=== PATIENT | female | born 1980 | race Caucasian/White ===

== ENCOUNTER 2018-02-27 12:54 | Emergency (ER) | payer OTHER ==
[~2018-02-27] VITALS: Ht 160 cm; Wt 126.1 kg
[~2018-02-27 12:54] MED LIST: ALBIPROI INH; ALBU90I INH; ALBU90OI; ALBU90OI INH; AMOX500 PO; AZIT250 PO; Amoxicillin500 MG PO; BACITO TOP; BECLOI16.8 IH; BENZ100A PO; CEPH500 PO; Cleocin HCl300 MG PO; ERYT.5TO BOTHEYES; FLUSAL1005; HYDACE5 PO; HYDGUAL120 PO; IBUP200 PO; OXYACE5T PO; PRED20 PO; PROM25 PO; SPACE CHAMBER1 EACH MC; SULTRIDS PO; TOBR.3OPSO OS
== END 2018-02-27 15:10 | disposition home or self-care (01) ==
LOC: ER 12:54
DX: S61.411A Laceration without foreign body of right hand, initial encounter (principal); Z88.8 Allergy status to other drugs, medicaments and biological substances; J45.909 Unspecified asthma, uncomplicated; W25.XXXA Contact with sharp glass, initial encounter
CPT/HCPCS: 12001; 90471; 90714; 99283

== ENCOUNTER 2019-08-01 18:12 | Emergency (ER) | payer OTHER ==
[~2019-08-01] VITALS: Ht 157.5 cm; Wt 122.5 kg
== END 2019-08-01 19:42 | disposition home or self-care (01) ==
LOC: ER 18:12
DX: M25.561 Pain in right knee (principal); J45.909 Unspecified asthma, uncomplicated; Z88.8 Allergy status to other drugs, medicaments and biological substances
CPT/HCPCS: 73562-RT; 99283-25

== ENCOUNTER → 2020-09-19 | Outpatient (CLI) | payer OTHER ==
[2020-09-22 14:07] LABS: CHLAMYDIA BY NAA Positive (Negative); GONOCOCCUS BY NAA Negative (Negative); TRICH VAG BY NAA Negative (Negative)
== END ==
LOC: LAB SHORT 19:16 → LAB 19:16
PROVIDERS: Registered Nurse Community Health
DX: Z11.3 Encounter for screening for infections with a predominantly sexual mode of transmission (principal)
CPT/HCPCS: 87491; 87591; 87661

== ENCOUNTER → 2021-01-13 | Outpatient (CLI) | payer OTHER ==
[2021-01-13 15:56] LABS: BASOPHILS ABSOLUTE AUTO 0.03 K/mm3 (0.00-0.23); BASOPHILS PERCENT AUTO 0 % (0-2); EOSINOPHILS ABSOLUTE AUTO 0.11 K/mm3 (0.00-0.68); EOSINOPHILS PERCENT AUTO 1 % (0-6); Hematocrit 46.9 % (33.0-51.0); Hemoglobin 15.1 g/dL (11.5-16.0); IMMATURE GRAN ABSOLUTE AUTO 0.02 K/mm3 (0.00-0.10); IMMATURE GRAN PERCENT AUTO 0 % (0-1); LYMPHOCYTES ABSOLUTE AUTO 2.11 K/mm3 (0.84-5.20); LYMPHOCYTES PERCENT AUTO 22 % (21-46); MONOCYTES ABSOLUTE AUTO 0.47 K/mm3 (0.16-1.47); MONOCYTES PERCENT AUTO 5 % (4-13); Mean Corpuscular HGB 26.8 pg (26.0-34.0); Mean Corpuscular HGB Conc 32.2 g/dL (31.5-36.5); Mean Corpuscular Volume 83 fL (80-100); Mean Platelet Volume 10.9 fL (9.1-12.4); NEUTROPHILS PERCENT AUTO 71 % (41-73); Platelet Count 237 K/mm3 (150-400); RDW Coefficient Variation 13.6 % (11.7-14.2); RDW Standard Deviation 41.2 fL (35.1-46.3); Red Blood Cell Count 5.63 M/mm3 (3.80-5.20); White Blood Cell Count 9.44 K/mm3 (4.00-11.30)
[2021-01-13 16:10] LABS: Alanine Aminotransfer (ALT/SGP 36 U/L (12-78); Albumin, Blood 3.8 g/dL (3.4-5.0); Albumin/Globulin Ratio 0.9 (0.8-1.8); Alk Phos 103 U/L (40-126); Anion Gap 6 mmol/L (6-16); Aspartate Aminotrans (AST/SGOT 21 U/L (12-37); Bilirubin, Total 0.3 mg/dL (0.1-1.0); Blood Urea Nitrogen 20 mg/dL (8-24); Bun/Creatinine Ratio 20.8 (12.0-20.0); CO2, Blood 30 mmol/L (21-32); Calcium, Blood 8.9 mg/dL (8.5-10.1); Chloride, Blood 99 mmol/L (98-108); Creatinine, Blood 0.96 mg/dL (0.40-1.00); Globulin, Blood 4.2 g/dL (2.2-4.0); Glomerular Filtration Rate >60 (60-); Glucose, Blood 211 mg/dL (70-99); Potassium, Blood 4.1 mmol/L (3.5-5.5); Sodium, Blood 135 mmol/L (136-145)
== END | disposition home or self-care (01) ==
LOC: LAB SHORT 15:49 → LAB 15:49
PROVIDERS: Physician Assistant
DX: E11.9 Type 2 diabetes mellitus without complications (principal); R53.83 Other fatigue
CPT/HCPCS: 80053; 83036; 84443; 85025

== ENCOUNTER → 2021-03-27 | Outpatient (CLI) | payer OTHER ==
[2021-03-28 15:07] LABS: HPV 16 Negative (Negative); HPV 18 Negative (Negative); HPV OTHER HR TYPES Negative (Negative)
[2021-03-31 07:34] LABS: CHLAMYDIA TRACHOMATIS, NAA Negative (Negative)
== END | disposition home or self-care (01) ==
LOC: LAB SHORT 13:30 → LAB UCHC 13:30
PROVIDERS: Nurse Practitioner
DX: Z12.4 Encounter for screening for malignant neoplasm of cervix (principal); N89.8 Other specified noninflammatory disorders of vagina
CPT/HCPCS: 87070; 87205; 87491; 87591; 87624; G0123

== ENCOUNTER 2021-06-16 06:32 | Emergency (ER) | payer OTHER ==
[~2021-06-16] VITALS: Ht 157.5 cm; Wt 120.2 kg
== END 2021-06-16 07:17 | disposition home or self-care (01) ==
LOC: ER 06:32
DX: L76.32 Postprocedural hematoma of skin and subcutaneous tissue following other procedure (principal); Z91.048 Other nonmedicinal substance allergy status; Y83.8 Other surgical procedures as the cause of abnormal reaction of the patient, or of later complication, without mention of misadventure at the time of the procedure
CPT/HCPCS: 99282

== ENCOUNTER 2022-05-12 17:27 | Emergency (ER) | payer OTHER ==
[~2022-05-12] VITALS: Ht 160 cm; Wt 108.9 kg
[2022-05-12] MEDS ORDERED: Amoxicillin500 MG PO (17:40)
== END 2022-05-12 17:40 | disposition home or self-care (01) ==
LOC: ER 17:27
DX: K04.7 Periapical abscess without sinus (principal); J45.909 Unspecified asthma, uncomplicated; Z91.09 Other allergy status, other than to drugs and biological substances
CPT/HCPCS: 99282

== ENCOUNTER 2022-05-18 23:59 | Emergency (ER) | payer OTHER ==
[~2022-05-18] VITALS: Ht 157.5 cm; Wt 108.9 kg
[2022-05-19 02:09] LABS: Influenza A, PCR NEGATIVE (NEGATIVE); Influenza B, PCR NEGATIVE (NEGATIVE); Resp Syncytial Virus, PCR NEGATIVE (NEGATIVE)
[2022-05-19 02:29] LABS: SARS-Cov-2 (COVID-19) PCR, MMC POSITIVE (NEGATIVE)
[2022-05-19] MEDS ORDERED: PAXLOVID 2X1501 EACH PO (02:43)
== END 2022-05-19 03:20 | disposition home or self-care (01) ==
LOC: ER 23:59
PROVIDERS: Physician Assistant
DX: U07.1 COVID-19 (principal); J45.909 Unspecified asthma, uncomplicated
CPT/HCPCS: 0241U; 99283

== ENCOUNTER → 2022-10-06 | Outpatient (CLI) | payer OTHER ==
[~2022-10-06] MED LIST changes: +PAXLOVID 2X1501 EACH PO
== END | disposition home or self-care (01) ==
LOC: LAB 16:20 → LAB SHORT 16:20
DX: R30.0 Dysuria (principal)
CPT/HCPCS: 87086

== ENCOUNTER 2023-07-28 12:28 | Emergency (ER) | payer OTHER ==
[~2023-07-28] VITALS: Ht 160 cm; Wt 108.9 kg
[2023-07-28 13:10] VITALS: BP 125/88
[2023-07-28 13:59] LABS: Influenza A, PCR NEGATIVE (NEGATIVE); Influenza B, PCR NEGATIVE (NEGATIVE); Resp Syncytial Virus, PCR NEGATIVE (NEGATIVE); SARS-Cov-2 (COVID-19) PCR, MMC NEGATIVE (NEGATIVE)
== END 2023-07-28 13:30 | disposition left against medical advice (07) ==
LOC: ER 12:28
PROVIDERS: Student in an Organized Health Care Education/Training Program
DX: R11.2 Nausea with vomiting, unspecified (principal); R42 Dizziness and giddiness; H92.02 Otalgia, left ear; R61 Generalized hyperhidrosis; Z53.21 Procedure and treatment not carried out due to patient leaving prior to being seen by health care provider; J45.909 Unspecified asthma, uncomplicated; Z91.048 Other nonmedicinal substance allergy status
CPT/HCPCS: 0241U

== ENCOUNTER 2024-10-21 18:41 | Emergency (ER) | payer OTHER ==
[~2024-10-21] VITALS: Ht 157.5 cm; Wt 101.2 kg
[2024-10-21 19:34] VITALS: BP 160/98
== END 2024-10-21 22:00 | disposition home or self-care (01) ==
LOC: ER 18:41
DX: M79.89 Other specified soft tissue disorders (principal); Z53.29 Procedure and treatment not carried out because of patient's decision for other reasons
CPT/HCPCS: 99282

== ENCOUNTER 2024-12-20 05:40 | Emergency (ER) | payer OTHER ==
[~2024-12-20] VITALS: Ht 160 cm; Wt 106.6 kg
[2024-12-20] MEDS ORDERED: Meclizine HCl 25 MG Tab PO ONE (06:30)
[2024-12-20 06:34] LABS: BASOPHILS ABSOLUTE AUTO 0.06 K/mm3 (0.00-0.23); BASOPHILS PERCENT AUTO 1 % (0-2); EOSINOPHILS ABSOLUTE AUTO 0.11 K/mm3 (0.00-0.68); EOSINOPHILS PERCENT AUTO 1 % (0-6); Hematocrit 46.9 % (33.0-51.0); Hemoglobin 15.6 g/dL (11.5-16.0); IMMATURE GRAN ABSOLUTE AUTO 0.02 K/mm3 (0.00-0.10); IMMATURE GRAN PERCENT AUTO 0 % (0-1); LYMPHOCYTES ABSOLUTE AUTO 2.52 K/mm3 (0.84-5.20); LYMPHOCYTES PERCENT AUTO 32 % (21-46); MONOCYTES ABSOLUTE AUTO 0.57 K/mm3 (0.16-1.47); MONOCYTES PERCENT AUTO 7 % (4-13); Mean Corpuscular HGB Conc 33.3 g/dL (31.5-36.5); Mean Corpuscular Volume 84 fL (80-100); Mean Platelet Volume 10.9 fL (9.1-12.4); NEUTROPHILS ABSOLUTE AUTO 4.68 K/mm3 (1.96-9.15); NEUTROPHILS PERCENT AUTO 59 % (41-73); Platelet Count 209 K/mm3 (150-400); RDW Coefficient Variation 14.2 % (11.7-14.2); RDW Standard Deviation 43.1 fL (35.1-46.3); Red Blood Cell Count 5.58 M/mm3 (3.80-5.20); White Blood Cell Count 7.96 K/mm3 (4.00-11.30)
[2024-12-20 06:54] LABS: Albumin, Blood 3.5 g/dL (3.4-5.0); Albumin/Globulin Ratio 0.9 (0.8-1.8); Bilirubin, Total 0.6 mg/dL (0.1-1.0); Bun/Creatinine Ratio 25.3 (12.0-20.0); Calcium, Blood 8.8 mg/dL (8.5-10.1); Creatinine, Blood 0.71 mg/dL (0.40-1.00); Globulin, Blood 3.9 g/dL (2.2-4.0); Potassium, Blood 3.8 mmol/L (3.5-5.5); Total Protein, Blood 7.4 g/dL (6.4-8.2)
[2024-12-20 07:14] VITALS: BP 126/86
[2024-12-20 07:37] LABS: Source, Urine Clean Catch
[2024-12-20 07:39] LABS: Appearance, Urine Clear (Clear); Bilirubin, Urine Neg (Neg); Blood, Urine Neg (Neg); Color, Urine Yellow (P-Yellow); Glucose Qualitative, Urine 4+ (Neg); Ketones, Urine Neg (Neg); Leukocyte Esterase, Urine Neg (Neg); Nitrite, Urine Neg (Neg); Protein, Urine Neg (Neg); Specific Gravity, Urine 1.025 (1.003-1.022); Urobilinogen, Urine NORM (Normal)
[2024-12-20] MEDS ORDERED: NS 1,000 ML IV SCH (08:35)
[2024-12-20] MEDS ORDERED: STEGLATRO15 MG PO (08:54)
[2024-12-20] MEDS ORDERED: LOSARTAN POTASS25 M2 PO (08:54)
[2024-12-20] MEDS ORDERED: ATORVASTATIN CA20 MG PO (08:54)
[2024-12-20] MEDS ORDERED: ALOGLIPTIN25 M7 PO (08:54)
[2024-12-20] MEDS ORDERED: MECL25 PO (09:36)
== END 2024-12-20 09:56 | disposition home or self-care (01) ==
LOC: ER 05:40
PROVIDERS: Student in an Organized Health Care Education/Training Program
DX: R42 Dizziness and giddiness (principal); E11.9 Type 2 diabetes mellitus without complications; E78.5 Hyperlipidemia, unspecified; J45.909 Unspecified asthma, uncomplicated; Z79.899 Other long term (current) drug therapy; Z88.8 Allergy status to other drugs, medicaments and biological substances
CPT/HCPCS: 80053; 81003; 81025; 83690; 84484; 85025; 93005; 93010; 96360; 99284-25; A9270; J7030

== ENCOUNTER 2025-01-27 11:01 | Emergency (ER) | payer OTHER ==
[~2025-01-27] VITALS: Ht 157.5 cm; Wt 106.6 kg
[~2025-01-27 11:01] MED LIST changes: +ALOGLIPTIN25 M7 PO; +ATORVASTATIN CA20 MG PO; +LOSARTAN POTASS25 M2 PO; +MECL25 PO; +STEGLATRO15 MG PO
[2025-01-27 11:06] VITALS: BP 120/79
[2025-01-27] MEDS ORDERED: Acetaminophen 500 MG Tab PO ONE (11:50)
[2025-01-27] MEDS ORDERED: ALBU90OI INH (11:59)
[2025-01-27] MEDS ORDERED: PAXLOVID 150-11 EAC1 PO (11:59)
== END 2025-01-27 12:20 | disposition home or self-care (01) ==
LOC: ER 11:01
DX: U07.1 COVID-19 (principal); J45.909 Unspecified asthma, uncomplicated
CPT/HCPCS: 99282; A9270

== ENCOUNTER → 2025-02-04 | Outpatient (CLI) | payer OTHER ==
[~2025-02-04] MED LIST changes: +PAXLOVID 150-11 EAC1 PO
[2025-02-04 19:12] LABS: Bacterial Vaginosis PCR Negative (NEGATIVE); Candida Group, PCR NOT DETECTED (NOT DETECT)
[2025-02-05 01:20] LABS: Candida glabrata-krusei, PCR DETECTED (NOT DETECT)
== END ==
LOC: LAB 15:35 → LAB SHORT 15:35
PROVIDERS: Family Medicine
DX: N89.8 Other specified noninflammatory disorders of vagina (principal)
CPT/HCPCS: 81515

== ENCOUNTER 2025-02-07 03:20 | Inpatient (IN) | payer OTHER ==
[~2025-02-07] VITALS: Ht 157.5 cm; Wt 108.8 kg
[2025-02-07] MEDS ORDERED: NS 1,000 ML IV SCH ×3 (06:05→11:00)
[2025-02-07] MEDS ORDERED: Ampicillin Sod/Sulbactam Sod 3 GM in NS 100 ML IV ONE (06:05)
[2025-02-07 06:23] LABS: BASOPHILS ABSOLUTE AUTO 0.07 K/mm3 (0.00-0.23); BASOPHILS PERCENT AUTO 0 % (0-2); EOSINOPHILS ABSOLUTE AUTO 0.18 K/mm3 (0.00-0.68); EOSINOPHILS PERCENT AUTO 1 % (0-6); Hematocrit 50.3 % (33.0-51.0); Hemoglobin 16.6 g/dL (11.5-16.0); IMMATURE GRAN ABSOLUTE AUTO 0.11 K/mm3 (0.00-0.10); IMMATURE GRAN PERCENT AUTO 1 % (0-1); LYMPHOCYTES ABSOLUTE AUTO 4.07 K/mm3 (0.84-5.20); LYMPHOCYTES PERCENT AUTO 20 % (21-46); MONOCYTES ABSOLUTE AUTO 1.03 K/mm3 (0.16-1.47); MONOCYTES PERCENT AUTO 5 % (4-13); Mean Corpuscular HGB 28.1 pg (26.0-34.0); Mean Corpuscular Volume 85 fL (80-100); Mean Platelet Volume 10.4 fL (9.1-12.4); NEUTROPHILS ABSOLUTE AUTO 15.12 K/mm3 (1.96-9.15); NEUTROPHILS PERCENT AUTO 74 % (41-73); Platelet Count 317 K/mm3 (150-400); RDW Coefficient Variation 13.6 % (11.7-14.2); RDW Standard Deviation 42.5 fL (35.1-46.3); Red Blood Cell Count 5.91 M/mm3 (3.80-5.20); White Blood Cell Count 20.58 K/mm3 (4.00-11.30)
[2025-02-07 06:26] LABS: Base Excess Venous 6.5 mmol/L; Bicarbonate Venous 26.5 mmol/L (24.0-30.0); PCO2 Venous 59.8 mmHg (38-42); pH Blood Venous 7.34 (7.34-7.37)
[2025-02-07 06:51] LABS: Albumin, Blood 3.8 g/dL (3.4-5.0); Albumin/Globulin Ratio 0.8 (0.8-1.8); Bilirubin, Total 0.5 mg/dL (0.1-1.0); Bun/Creatinine Ratio 16.2 (12.0-20.0); Creatinine, Blood 0.8 mg/dL (0.40-1.00); Globulin, Blood 4.6 g/dL (2.2-4.0); Magnesium, Blood 2.4 mg/dL (1.6-2.4); Potassium, Blood 3.7 mmol/L (3.5-5.5); Total Protein, Blood 8.4 g/dL (6.4-8.2)
[2025-02-07] MEDS ORDERED: Dexamethasone Sod Phos 10 MG/ML 1ML VIAL IV ONE (08:05)
[2025-02-07] MEDS ORDERED: Midazolam HCl 1MG / ML 2ML Vial IV ONE (08:10)
[2025-02-07] MEDS ORDERED: Ketorolac Tromethamine 30mg Vial IV ONE (08:15)
[2025-02-07] MEDS ORDERED: Lidocaine HCl 4% 5 ML SDA INH ONE (08:15)
[2025-02-07] MEDS ORDERED: FentaNYL Citrate 50 MCG/ML 2 ML Injection IV ONE (08:20)
[2025-02-07 09:08] LABS: Source, Urine Clean Catch
[2025-02-07 09:23] LABS: Appearance, Urine Clear (Clear); Bilirubin, Urine Neg (Neg); Blood, Urine 3+ (Neg); Color, Urine Yellow (P-Yellow); Glucose Qualitative, Urine 4+ (Neg); Ketones, Urine Neg (Neg); Leukocyte Esterase, Urine 2+ (Neg); Nitrite, Urine Neg (Neg); Protein, Urine Neg (Neg); Urobilinogen, Urine NORM (Normal)
[2025-02-07 09:31] LABS: Bacteria Many /hpf; Red Blood Cells, Urine 25-50 /hpf (0-2); Squamous Epithelial Cells Few /hpf (Few); White Blood Cells, Urine 50-100 /hpf (0-5)
[2025-02-07] MEDS ORDERED: FentaNYL Citrate 50 MCG/ML 2 ML Injection IV PRN (10:50)
[2025-02-07] MEDS ORDERED: Magnesium Hydroxide Conc 10 ML UDC PO PRN (10:50)
[2025-02-07] MEDS ORDERED: FLU VACC TS2024-25(6MOS UP)/PF 45 MCG/0.5 ML SYRINGE IM ONE (10:50)
[2025-02-07] MEDS ORDERED: Ketorolac Tromethamine 15mg Vial IV PRN (11:00)
[2025-02-07] MEDS ORDERED: Insulin Regular 100 UNIT/ML 10ML Vial SC SCH (11:30)
[2025-02-07 11:40] LABS: Bacterial Vaginosis PCR Negative (NEGATIVE); Candida Group, PCR NOT DETECTED (NOT DETECT)
[2025-02-07] MEDS ORDERED: Ampicillin Sod/Sulbactam Sod 3 GM in NS 100 ML IV SCH (12:00)
[2025-02-07 12:09] VITALS: BP 132/78
[2025-02-07 12:11] LABS: Chlamydia Trachomatis Vaginal NOT DETECTED (NOT DETECT); Neisseria Gonorrhoea Vaginal NOT DETECTED (NOT DETECT)
--- NOTE | 2025-02-07 12:19 | NUR ---
PRIMARY NURSE REPORTED TO THIS RN THAT PATIENT DIFFICULT TO ROUSE. SATTING 78% ON RA. NON-REBREATHER PLACED AND CALL TO DR. MATTHEW FOR NARCAN AND CONTINUOUS BiOx.
[2025-02-07] MEDS ORDERED: Naloxone HCl 0.4MG / ML 1ML Vial IV PRN (12:20)
[2025-02-07 12:28] LABS: Candida glabrata-krusei, PCR DETECTED (NOT DETECT)
[2025-02-07] MEDS ORDERED: Albuterol 2.5 MG/3 ML VIAL INH PRN (12:30)
--- NOTE | 2025-02-07 12:30 | NUR ---
ADMISSION TO MEDICAL FLOOR-TRANSFER TO PCU PATIENT ADMITTED FROM EMERGENCY ROOM FOR PERITONSILLAR ABSCESS WITH I&D AT BEDSIDE IN EMERGENCY ROOM. PATIENT ARRIVED TO UNIT DIFFICULT TO ROUSE, SPO2 AT 78%. PATIENT PLACED ON NONREBREATHER AT 10LPM, CHARGE NURSE CALLED ATTENDING TO ORDER CONTINUOUS PULSE OX AND NARCAN. NARCAN ADMINISTERED, INEFFECTIVE. PATIENT REMAINS DIFFICULT TO ROUSE, SNORING, UNABLE TO KEEP EYES OPEN, BUT CAN ANSWER QUESTIONS INTERMITTENTLY. ORIENTED X3. MUMBLED SPEECH. RESPIRATORY CALLED TO BEDSIDE TO PLACE CONTINUOUS PULSE OX. PATIENT UNSAFE TO SWALLOW AT THIS TIME, FULL LIQUID DIET ORDERED. REPORT CALLED TO PCU 12 NURSE. PATIENT WEANED TO 4 LPM VIA MASK, TOLERATED WELL WITH SPO2 90-94%. REPORT CALLED TO [facility] NURSE. TRANSFERRED TO PCU 12 BY MIKE AND THIS RN. ALL BELONGINGS SENT WITH PATIENT, INCLUDING CELLPHONE, KEYS, SHOES, AND CLOTHING.
[2025-02-07] MEDS ORDERED: Albuterol HFA200 ACT/6.7 GM INH INH PRN (12:35)
[2025-02-07 13:24] VITALS: BP 132/91
--- NOTE | 2025-02-07 13:33 | NUR ---
TRANSFER TO PCU: ASSUMED CARE OF PT UPON ARRIVAL TO PCU AT APPROX 1325. PT IS LETHARGIC, ROUSES EASILY TO VERBAL/TOUCH AND WILL ANSWER QUESTIONS W/SHORT ANSWERS, MUMBLED SPEECH, ORIENTED x4, PT FALLS BACK TO SLEEP QUICKLY. RESPIRATIONS ARE EVEN, UNLABORED, OCCASIONAL PAUSES BETWEEN BREATHS WHILE SLEEPING W/DESATURATION MOSTLY INTO 84-87% (OBSERVED x1 TO 55%, PROVIDER AWARE) RANGE THAT QUICKLY IMPROVES ONCE PT TAKES BREATH (MED DEPT RN STATES FAMILY IS BRINGING PT's HOME CPAP), O2 SATS >93% ON SIMPLE FACE MASK. SR/ST ON MONITOR, RATE 90s-100s, PT DENIES CP. SCDs IN PLACE.
--- NOTE | 2025-02-07 13:40 | NUR ---
PATIENT TRANSFERRED TO PCU 12 AROUND 1330 THIS SHIFT.
[2025-02-07 15:55] VITALS: BP 125/84
[2025-02-07 16:19] LABS: U Amphetamine Screen DETECTED; U Barbituate Screen Not Detected; U Benzodiazapine Screen Not Detected; U Buprenorphine Screen Not Detected; U Cannabinoids Screen Not Detected; U Cocaine Screen Not Detected; U Methadone Screen Not Detected; U Methamphetamine Screen DETECTED; U Opiates Screen Not Detected; U Oxycodone Screen Not Detected; U Phencyclidine Screen Not Detected
--- NOTE | 2025-02-07 18:46 | NUR ---
SHIFT SUMMARY: PT SLEEPS OFTEN, WILL ROUSE TO VERBAL/TOUCH BUT FALLS QUICKLY BACK TO SLEEP, IMPULSIVE W/TOILETING NEEDS DESPITE REPEATED EFFORTS TO SHOW PT HOW TO USE CALL BUTTON, BED ALARM FOR SAFETY. UPON INITIAL ASSESSMENT, PT's PUPILS NOTED TO BE UNEQUAL IN SIZE AND BOTH SLUGGISH TO LIGHT, PT STATES THIS "HAPPENS SOMETIMES", HOSPITALIST NOTIFIED AND TO BEDSIDE, AT THIS TIME PT's PUPILS ARE EQUAL IN SIZE AND CONTINUE TO BE SLUGGISH. PT's FRIENDS BROUGHT IN HER HOME CPAP, RESP THERAPY NOTIFIED. PT CURRENTLY MAINTAINING O2 SATS >92% ON 7L VIA FACEMASK, DOES CONTINUE TO DESAT WHEN BREATHING IS PAUSED. SR ON MONITOR, VSS. WILL CONTINUE TO MONITOR AND TREAT ACCORDINGLY UNTIL REPORT GIVEN TO ONCOMING RN.
[2025-02-07 19:18] VITALS: BP 122/83
[2025-02-07] MEDS ORDERED: Lactobacil 2-S.Thermo-Bifido 1 1 Cap PO SCH (21:00)
[2025-02-07] MEDS ORDERED: MICONAZOLE NITRATE 200 MG VAG SCH (21:00)
[2025-02-08] VITALS (7 sets, daily range): BP systolic 105–135; BP diastolic 69–87
--- NOTE | 2025-02-08 00:22 | NUR ---
UPDATE: PT SPO2 DROPPING TO LOW 80'S ON 9L VIA OXYMASK WHILE ASLEEP. IMPROVES IMMEDIATELY UPON AWAKENING. THIS RN PHONED RT, CPAP WITH BLEED IN O2 SETUP. NO S/S OF ACUTE DISTRESS AT THIS TIME.
[2025-02-08 04:02] LABS: BASOPHILS ABSOLUTE AUTO 0.02 K/mm3 (0.00-0.23); BASOPHILS PERCENT AUTO 0 % (0-2); EOSINOPHILS PERCENT AUTO 0 % (0-6); Hematocrit 49.3 % (33.0-51.0); Hemoglobin 15.9 g/dL (11.5-16.0); IMMATURE GRAN ABSOLUTE AUTO 0.05 K/mm3 (0.00-0.10); IMMATURE GRAN PERCENT AUTO 0 % (0-1); LYMPHOCYTES ABSOLUTE AUTO 2.01 K/mm3 (0.84-5.20); LYMPHOCYTES PERCENT AUTO 16 % (21-46); MONOCYTES ABSOLUTE AUTO 0.62 K/mm3 (0.16-1.47); MONOCYTES PERCENT AUTO 5 % (4-13); Mean Corpuscular HGB 27.6 pg (26.0-34.0); Mean Corpuscular HGB Conc 32.3 g/dL (31.5-36.5); Mean Corpuscular Volume 85 fL (80-100); Mean Platelet Volume 10.7 fL (9.1-12.4); NEUTROPHILS PERCENT AUTO 79 % (41-73); Platelet Count 270 K/mm3 (150-400); RDW Coefficient Variation 13.6 % (11.7-14.2); RDW Standard Deviation 42.7 fL (35.1-46.3); Red Blood Cell Count 5.77 M/mm3 (3.80-5.20)
[2025-02-08 04:23] LABS: Albumin, Blood 3.3 g/dL (3.4-5.0); Albumin/Globulin Ratio 0.8 (0.8-1.8); Bilirubin, Total 0.6 mg/dL (0.1-1.0); Bun/Creatinine Ratio 22.8 (12.0-20.0); Calcium, Blood 9.5 mg/dL (8.5-10.1); Creatinine, Blood 0.53 mg/dL (0.40-1.00); Globulin, Blood 4.3 g/dL (2.2-4.0); Potassium, Blood 4.4 mmol/L (3.5-5.5); Total Protein, Blood 7.6 g/dL (6.4-8.2)
[2025-02-08] MEDS ORDERED: Losartan Potassium 25 MG Tab PO SCH (09:00)
[2025-02-08] MEDS ORDERED: Enoxaparin 40 MG/0.4 ML SYR SC SCH (09:00)
[2025-02-08] MEDS ORDERED: Lidocaine 2% Viscous Soln 20 ML,Nystatin 100,000 Unit/ml Susp 20 ML,Mag Hydrox/Al Hydro... MT PRN (15:20)
--- NOTE | 2025-02-08 17:18 | NUR ---
SHIFT SUMMARY: PT CONTINUES TO SLEEP OFTEN, BUT IS EASIER TO WAKE TODAY, ANSWERS ORIENTATION QUESTIONS APPROPRIATELY, PUPILS EQUAL IN SIZE AND BOTH SLUGGISH, MUMBLED SPEECH CONTINUES BUT PT DOES NOT HAVE HER DENTURES (AT HOME). O2 SATS MAINTAINED >92% ON 2 L/MIN VIA NC/FACEMASK, CPAP ON SB FOR SLEEP, PT WILL OCCASIONALLY DECLINE CPAP FOR SLEEP AND STILL DESATURATES WHEN SLEEPING IF NOT ON CPAP BUT NOT SEVERELY YESTERDAY. PT DENIES CP, SR/ST ON MONITOR W/RATE 90s-100s. PT SHOWERED INDEPENDENTLY TODAY, STAFF REMAINED IN ROOM FOR SAFETY. DIET ADVANCED TO SOFT/CONSISTENT CARB, PT TOLERATING WELL AND FREQUENTLY REQUESTING SNACKS WHEN NOT SLEEPING. DENTAL HYGIENE CONSULT PERFORMED TODAY, EVIDENCE OF THRUSH NOTED, PROVIDER NOTIFIED W/NEW ORDERS PLACED. PT RESTING IN BED W/MEAL TRAY, CALL LIGHT IN REACH, BED ALARM ON FOR SAFETY.
[2025-02-08] MEDS ORDERED: Atorvastatin 10 MG Tab PO SCH (18:00)
--- NOTE | 2025-02-08 18:27 | NUR ---
TRANSFER: PT RECEIVES NEW ROOM ASSIGNMENT IN MEDICAL DEPARTMENT. REPORT HAS BEEN GIVEN TO RECEIVING RN. PT TO BE TRANSFERED SHORTLY.
[2025-02-08] MEDS ORDERED: NS 250 ML IV PRN (23:55)
[2025-02-09 00:22] VITALS: BP 127/81
[2025-02-09 03:24] VITALS: BP 124/96
[2025-02-09 06:52] LABS: BASOPHILS ABSOLUTE AUTO 0.05 K/mm3 (0.00-0.23); BASOPHILS PERCENT AUTO 0 % (0-2); EOSINOPHILS ABSOLUTE AUTO 0.09 K/mm3 (0.00-0.68); EOSINOPHILS PERCENT AUTO 1 % (0-6); Hematocrit 48.5 % (33.0-51.0); Hemoglobin 15.6 g/dL (11.5-16.0); IMMATURE GRAN ABSOLUTE AUTO 0.03 K/mm3 (0.00-0.10); IMMATURE GRAN PERCENT AUTO 0 % (0-1); LYMPHOCYTES ABSOLUTE AUTO 3.95 K/mm3 (0.84-5.20); LYMPHOCYTES PERCENT AUTO 33 % (21-46); MONOCYTES ABSOLUTE AUTO 0.68 K/mm3 (0.16-1.47); MONOCYTES PERCENT AUTO 6 % (4-13); Mean Corpuscular HGB 27.8 pg (26.0-34.0); Mean Corpuscular HGB Conc 32.2 g/dL (31.5-36.5); Mean Corpuscular Volume 86 fL (80-100); Mean Platelet Volume 10.9 fL (9.1-12.4); NEUTROPHILS ABSOLUTE AUTO 7.37 K/mm3 (1.96-9.15); NEUTROPHILS PERCENT AUTO 61 % (41-73); Platelet Count 288 K/mm3 (150-400); RDW Coefficient Variation 13.7 % (11.7-14.2); RDW Standard Deviation 43.6 fL (35.1-46.3); Red Blood Cell Count 5.62 M/mm3 (3.80-5.20); White Blood Cell Count 12.17 K/mm3 (4.00-11.30)
[2025-02-09 07:18] LABS: Albumin, Blood 3.2 g/dL (3.4-5.0); Albumin/Globulin Ratio 0.8 (0.8-1.8); Bilirubin, Total 0.5 mg/dL (0.1-1.0); Bun/Creatinine Ratio 28.6 (12.0-20.0); Calcium, Blood 8.9 mg/dL (8.5-10.1); Creatinine, Blood 0.63 mg/dL (0.40-1.00); Globulin, Blood 4.2 g/dL (2.2-4.0); Potassium, Blood 4.3 mmol/L (3.5-5.5); Total Protein, Blood 7.4 g/dL (6.4-8.2)
[2025-02-09 07:50] VITALS: BP 143/100
[2025-02-09] MEDS ORDERED: HyDROXyzine HCl 25 MG Tab PO PRN (09:15)
[2025-02-09] MEDS ORDERED: VISBIOME 112.51 EACH PO (11:58)
[2025-02-09] MEDS ORDERED: AMOCLA875 PO (12:00)
--- NOTE | 2025-02-09 12:35 | NUR ---
DISCHARGE PT AOX4, COOPERATIVE, ABLE TO MAKE NEEDS KNOWN. PT IS 1 PERSON ASSIST, SBA. IV DC'D BY THIS RN. TELE DC'D BY VBA DEVELOPER. PT WAS DISTRAUGHT ABOUT BEING DC'D AND HER RECENT DRUG USE SHE REPORTS. THIS RN PROVIDED THERAPEUTIC COMMUNICATION AND RECCOMENDATIONS FOR REHAB. PT AMBULATED OUT OF HOSPITAL BY HERSELF WITH BELONGINGS AND DC PAPERWORK IN HAND.
[2025-02-10 10:21] LABS: HIV 1,2 COMBO ANTIGEN/ANTIBODY Negative (Negative)
== END 2025-02-09 12:32 | disposition home or self-care (01) | DRG 872 ==
LOC: ER 03:20 → MEDS 03:21 → PCU 03:21 → MEDS 11:57 → PCU 13:16 → MEDS 02-08 18:36
PROVIDERS: Student in an Organized Health Care Education/Training Program; ADMIT Hospitalist
DX: A40.9 Streptococcal sepsis, unspecified (principal); J36 Peritonsillar abscess; B37.49 Other urogenital candidiasis; B37.0 Candidal stomatitis; Z68.41 Body mass index [BMI] 40.0-44.9, adult; F15.11 Other stimulant abuse, in remission; I10 Essential (primary) hypertension; E78.5 Hyperlipidemia, unspecified; J45.909 Unspecified asthma, uncomplicated; G47.33 Obstructive sleep apnea (adult) (pediatric); E11.65 Type 2 diabetes mellitus with hyperglycemia; E66.01 Morbid (severe) obesity due to excess calories; Z88.8 Allergy status to other drugs, medicaments and biological substances; Z79.84 Long term (current) use of oral hypoglycemic drugs; Z86.16 Personal history of COVID-19
CPT/HCPCS: 36415; 42700; 70491; 80053; 81001; 81515; 82803; 82947; 83036; 83605; 83735; 85025; 87086; 87147; 87389; 87430; 87491; 87591; 94640; 94664; 94762; 96365-59; 96375-59; 99285-25; A9270; G0378; J0295; J1100; J1650; J1815; J1885; J2003; J2250; J2310; J3010; J7030; J7050; Q9967

== ENCOUNTER → 2025-03-19 | Outpatient (CLI) | payer OTHER ==
[~2025-03-19] MED LIST changes: +AMOCLA875 PO; +VISBIOME 112.51 EACH PO
[2025-03-19 18:44] LABS: Candida Group, PCR NOT DETECTED (NOT DETECT); Candida glabrata-krusei, PCR NOT DETECTED (NOT DETECT)
[2025-03-19 19:25] LABS: Bacterial Vaginosis PCR Positive (NEGATIVE)
== END ==
LOC: LAB SHORT 15:57 → LAB 15:57
PROVIDERS: Registered Nurse Community Health
DX: N89.8 Other specified noninflammatory disorders of vagina (principal)
CPT/HCPCS: 81515

== ENCOUNTER 2025-05-03 21:56 | Observation (INO) | payer OTHER ==
[~2025-05-03] VITALS: Ht 157.5 cm; Wt 108.9 kg
[2025-05-03 22:58] LABS: BASOPHILS ABSOLUTE AUTO 0.05 K/mm3 (0.00-0.23); BASOPHILS PERCENT AUTO 1 % (0-2); EOSINOPHILS ABSOLUTE AUTO 0.08 K/mm3 (0.00-0.68); EOSINOPHILS PERCENT AUTO 1 % (0-6); Hematocrit 45.7 % (33.0-51.0); Hemoglobin 15.1 g/dL (11.5-16.0); IMMATURE GRAN ABSOLUTE AUTO 0.01 K/mm3 (0.00-0.10); IMMATURE GRAN PERCENT AUTO 0 % (0-1); LYMPHOCYTES ABSOLUTE AUTO 2.13 K/mm3 (0.84-5.20); LYMPHOCYTES PERCENT AUTO 21 % (21-46); MONOCYTES ABSOLUTE AUTO 0.55 K/mm3 (0.16-1.47); MONOCYTES PERCENT AUTO 6 % (4-13); Mean Corpuscular HGB 28.2 pg (26.0-34.0); Mean Corpuscular Volume 85 fL (80-100); Mean Platelet Volume 10.8 fL (9.1-12.4); NEUTROPHILS ABSOLUTE AUTO 7.16 K/mm3 (1.96-9.15); NEUTROPHILS PERCENT AUTO 72 % (41-73); Platelet Count 211 K/mm3 (150-400); RDW Coefficient Variation 13.9 % (11.7-14.2); RDW Standard Deviation 43.2 fL (35.1-46.3); Red Blood Cell Count 5.35 M/mm3 (3.80-5.20); White Blood Cell Count 9.98 K/mm3 (4.00-11.30)
[2025-05-03 23:16] LABS: Albumin, Blood 3.7 g/dL (3.4-5.0); Albumin/Globulin Ratio 0.9 (0.8-1.8); Bilirubin, Total 0.5 mg/dL (0.1-1.0); Bun/Creatinine Ratio 23.5 (12.0-20.0); Calcium, Blood 9.1 mg/dL (8.5-10.1); Creatinine, Blood 0.68 mg/dL (0.40-1.00); Globulin, Blood 4.3 g/dL (2.2-4.0)
[2025-05-04] VITALS (12 sets, daily range): BP systolic 101–126; BP diastolic 56–74
[2025-05-04 01:19] LABS: Source, Urine Clean Catch
[2025-05-04 01:23] LABS: Bilirubin, Urine Neg (Neg); Blood, Urine Neg (Neg); Glucose Qualitative, Urine Neg (Neg); Ketones, Urine Neg (Neg); Leukocyte Esterase, Urine 1+ (Neg); Nitrite, Urine Neg (Neg); Protein, Urine 1+ (Neg); Specific Gravity, Urine 1.025 (1.003-1.022); Urobilinogen, Urine NORM (Normal)
[2025-05-04 01:30] LABS: Appearance, Urine Clear (Clear); Color, Urine Yellow (P-Yellow)
[2025-05-04 01:39] LABS: Amorphous Light (0-Heavy); Bacteria Mod /hpf; Mucus Light (0-Heavy); Red Blood Cells, Urine Not Seen /hpf (0-2); Squamous Epithelial Cells Few /hpf (Few)
[2025-05-04] MEDS ORDERED: Ketorolac Tromethamine 15mg Vial IV ONE (02:35)
[2025-05-04] MEDS ORDERED: FentaNYL Citrate 50 MCG/ML 2 ML Injection IV ONE (02:35)
[2025-05-04] MEDS ORDERED: CefTRIAXone Sodium 2,000 MG in NS 100 ML IV ONE (05:45)
[2025-05-04] MEDS ORDERED: Bupivacaine 0.5% W/EPI 1:200000 SDV 30 ML Vial ONE (07:06)
[2025-05-04] MEDS ORDERED: Bupivacaine 0.25% Epi 1:200000 30 ML Vial ONE (07:07)
[2025-05-04] MEDS ORDERED: Lactated Ringer's 1,000 ML IV SCH ×2 (07:20→11:20)
[2025-05-04] MEDS ORDERED: FentaNYL Citrate 50 MCG/ML 5 ML Injection ONE (07:39)
[2025-05-04] MEDS ORDERED: Midazolam HCl 1MG / ML 2ML Vial ONE (07:39)
[2025-05-04] MEDS ORDERED: Dexamethasone Sod Phos 10 MG/ML 1ML VIAL ONE (07:40)
[2025-05-04] MEDS ORDERED: propofoL 20 ML IV ONE (07:40)
[2025-05-04] MEDS ORDERED: Ondansetron HCl 2 MG / ML 2ML Vial ONE (07:40)
[2025-05-04] MEDS ORDERED: Lidocaine HCl 2% 20 ML MDV ONE (07:40)
[2025-05-04] MEDS ORDERED: Rocuronium Bromide 10 MG/ML 5ML Injection IV ONE ×2 (07:40→09:37)
[2025-05-04] MEDS ORDERED: Labetalol HCL 5 MG/ML 4ML Injection (Single Dose) IV PRN (07:55)
[2025-05-04] MEDS ORDERED: Lidocaine HCl 1% 5 ML SYR INJ ONE (07:55)
[2025-05-04] MEDS ORDERED: FentaNYL Citrate 50 MCG/ML 2 ML Injection IV PRN ×3 (07:55→08:00)
[2025-05-04] MEDS ORDERED: Ondansetron HCl 2 MG / ML 2ML Vial IV PRN ×2 (08:00→11:15)
[2025-05-04] MEDS ORDERED: HYDROmorphone HCl/Pf 1MG SYR IV PRN ×2 (08:00→11:15)
[2025-05-04] MEDS ORDERED: Ketorolac Tromethamine 30mg Vial ONE ×2 (09:37→11:14)
[2025-05-04] MEDS ORDERED: Neostigmine Methylsulfate 5MG/5ML SYR ONE (10:44)
[2025-05-04] MEDS ORDERED: Glycopyrrolate 0.2 MG/ML 5ML VIAL ONE (10:44)
[2025-05-04] MEDS ORDERED: FentaNYL Citrate 50 MCG/ML 2 ML Injection ONE (11:14)
[2025-05-04] MEDS ORDERED: DiphenhydrAMINE HCL 25 MG Cap PO PRN (11:15)
[2025-05-04] MEDS ORDERED: Naloxone HCl 0.4MG / ML 1ML Vial IV PRN (11:15)
[2025-05-04] MEDS ORDERED: Metoclopramide HCl 5MG / ML 2ML Vial IV PRN (11:20)
[2025-05-04] MEDS ORDERED: OxyCODONE HCL 5 MG TAB PO PRN ×2 (11:25)
[2025-05-04] MEDS ORDERED: Albuterol HFA200 ACT/6.7 GM INH INH PRN (11:30)
[2025-05-04] MEDS ORDERED: Insulin Human Lispro 100 Units/ML 3ML Syringe SC SCH (11:30)
[2025-05-04] MEDS ORDERED: Acetaminophen 500 MG Tab PO SCH (12:00)
[2025-05-04] MEDS ORDERED: Ketorolac Tromethamine 30mg Vial IV SCH (12:00)
--- NOTE | 2025-05-04 12:12 | NUR ---
ARRIVAL TO UNIT TRANSFERRED TO UNIT AT APPROX 1200 FROM PACU. S/P LAP DIAGNOSTIC W/ RAUDEL AND OOPHERECTOMY. VSS. PLACED ON 3L VIA NC SATs 85-88% ON ROOM AIR. PATIENT ALERT - COMMUNICATING NEEDS EFFECTIVELY. REPORTING 5/10 ABD PAIN - REFUSED KPAD. MEDICATED PER EMAR W/ ORAL MEDICATION. DENIES N/V - SNACKS AND WATER WITHIN REACH. X4 LAP SITES W/ WOUND GLUE C/D/I. CALL LIGHT IN REACH.
[2025-05-04] MEDS ORDERED: OXYC5 PO (12:54)
[2025-05-04] MEDS ORDERED: ACET500 PO (12:55)
[2025-05-04] MEDS ORDERED: IBUP800 PO (12:56)
[2025-05-04] MEDS ORDERED: NITR100CA PO (13:00)
[2025-05-04] MEDS ORDERED: Ibuprofen 400 MG Tab PO SCH (16:00)
--- NOTE | 2025-05-04 16:38 | NUR ---
SHIFT SUMMARY NO ACUTE CHANGES SINCE ARRIVAL TO UNIT. PATIENT LETHARGIC - SLEEPING T/O AFTERNOON. EASILY AROUSABLE WITH VERBAL STIMULI. S/P DIAGNOSTIC LAP W/ LYSIS OF ADHESIONS AND OOPHERECTOMY. REMAINS ON 3L VIA NC - SATs 90-94%. CONTINOUS PULSE OX AT BEDSIDE. HX OF ALICIA - FAMILY TO BRING IN HOME CPAP FOR USE TONIGHT. BP SOFT - SBP 100s. MAP >65. IVF INFUSING PER EMAR. ASYMPTOMATIC W/ POSITION CHANGES. X4 LAP SITES C/D/I. MANAGING PAIN PER EMAR. TOLERATING PO INTAKE. UP TO BSC W/ 1P ASSIST - X1 VOID. CALL LIGHT IN REACH.
[2025-05-04] MEDS ORDERED: Nitrofurantoin/Nitrofuran Mac 100 MG Cap PO SCH (21:00)
[2025-05-05 00:21] VITALS: BP 117/80
[2025-05-05 04:55] VITALS: BP 104/72
--- NOTE | 2025-05-05 06:25 | NUR ---
SHIFT SUMMARY POD 1 DIAGNOSTIC LAP c RAUDEL & OOPHERECTOMY. NO ACUTE CHANGES OVERNIGHT. VSS, PT DID NOT TOLERATE HOME CPAP, PT ON 5L O2 VIA NC TO MAINTAIN SATS >90%. PT SOMNLOENT, ROUSABLE TO VERBAL/PHYSCIAL STIMULI. LAP SITE x4 c WOUND GLUE C/D/I c BRUISING AT INCISION SITES. STAND/PIVOT TO [facility] [place] c FWW & SBA. VOIDING. PT REPORTS PAIN TOLERABLE, MEDEICATED PER EMAR & NON-PHARM INTERVENTIONS IN USE. TOLERATING ORALS, DENIES N/V. CALL LIGHT IN REACH, BED IN LOWEST POSITION, WILL REPORT TO DAY RN.
[2025-05-05 07:25] VITALS: BP 115/77
[2025-05-05 07:25] LABS: BASOPHILS ABSOLUTE AUTO 0.02 K/mm3 (0.00-0.23); BASOPHILS PERCENT AUTO 0 % (0-2); EOSINOPHILS ABSOLUTE AUTO 0.01 K/mm3 (0.00-0.68); EOSINOPHILS PERCENT AUTO 0 % (0-6); Hematocrit 38.4 % (33.0-51.0); Hemoglobin 12.3 g/dL (11.5-16.0); IMMATURE GRAN ABSOLUTE AUTO 0.02 K/mm3 (0.00-0.10); IMMATURE GRAN PERCENT AUTO 0 % (0-1); LYMPHOCYTES ABSOLUTE AUTO 1.79 K/mm3 (0.84-5.20); LYMPHOCYTES PERCENT AUTO 17 % (21-46); MONOCYTES ABSOLUTE AUTO 0.77 K/mm3 (0.16-1.47); MONOCYTES PERCENT AUTO 7 % (4-13); Mean Corpuscular HGB 27.5 pg (26.0-34.0); Mean Corpuscular Volume 86 fL (80-100); Mean Platelet Volume 10.8 fL (9.1-12.4); NEUTROPHILS ABSOLUTE AUTO 7.78 K/mm3 (1.96-9.15); NEUTROPHILS PERCENT AUTO 75 % (41-73); Platelet Count 207 K/mm3 (150-400); RDW Coefficient Variation 13.8 % (11.7-14.2); RDW Standard Deviation 43.6 fL (35.1-46.3); Red Blood Cell Count 4.47 M/mm3 (3.80-5.20); White Blood Cell Count 10.39 K/mm3 (4.00-11.30)
[2025-05-05] MEDS ORDERED: Losartan Potassium 25 MG Tab PO SCH (09:00)
[2025-05-05] MEDS ORDERED: Atorvastatin 10 MG Tab PO SCH (09:00)
[2025-05-05] MEDS ORDERED: Polyethylene Glycol 3350 17 gm PO SCH (09:00)
[2025-05-05] MEDS ORDERED: Alogliptin Benzoate 25 MG TAB PO SCH (09:00)
[2025-05-05] MEDS ORDERED: Enoxaparin 40 MG/0.4 ML SYR SC SCH (09:00)
--- NOTE | 2025-05-05 14:34 | NUR ---
DISCHARGE: DR. BANEGAS IN ROOM AT ABOUT 1020 AND IS OK TO DC PT. PT TO FOLLOW UP WITH PCP FOR HOME CPAP USE, PT IS AWARE. DC PACKET PRINTED AND PT EDUCATED, IV DC'D WNL, TIP INTACT. SCRIPTS ALREADY SENT TO [facility]. PT LEFT UNIT VIA WHEELCHAIR WITH THIS RN AND PT FRIEND.
== END 2025-05-05 14:31 | disposition home or self-care (01) ==
LOC: ER 21:56 → SURS 21:57 → ER 05-04 07:20 → SURS 05-04 11:10
PROVIDERS: Student in an Organized Health Care Education/Training Program; ADMIT Obstetrics & Gynecology
PROC: 0DNU0ZZ Release Omentum, Open Approach (ICD-10-PCS; principal; 2025-05-04 07:30)
PROC: 0UB10ZZ Excision of Left Ovary, Open Approach (ICD-10-PCS; principal; 2025-05-04 07:30)
DX: N83.202 Unspecified ovarian cyst, left side (principal); N73.6 Female pelvic peritoneal adhesions (postinfective); E11.9 Type 2 diabetes mellitus without complications; I10 Essential (primary) hypertension; E78.5 Hyperlipidemia, unspecified; G47.33 Obstructive sleep apnea (adult) (pediatric); J45.909 Unspecified asthma, uncomplicated; Z99.89 Dependence on other enabling machines and devices
CPT/HCPCS: 36415; 74177; 76857; 80053; 81001; 82947; 83690; 84703; 85025; 86850; 86900; 86901; 87077; 87086; 87186; 88305; 93005; 93010; 94762; 99285-25; A9270; G0378; J0696; J1100; J1650; J1885; J2250; J2405; J2704; J2710; J3010; J7120; Q9967

== ENCOUNTER 2025-07-05 12:08 | Emergency (ER) | payer OTHER ==
[~2025-07-05] VITALS: Ht 157.5 cm; Wt 120.2 kg
[~2025-07-05 12:08] MED LIST changes: +ACET500 PO; +IBUP800 PO; +NITR100CA PO; +OXYC5 PO
[2025-07-05 13:41] LABS: BASOPHILS ABSOLUTE AUTO 0.04 K/mm3 (0.00-0.23); BASOPHILS PERCENT AUTO 1 % (0-2); EOSINOPHILS ABSOLUTE AUTO 0.15 K/mm3 (0.00-0.68); EOSINOPHILS PERCENT AUTO 2 % (0-6); Hematocrit 46.6 % (33.0-51.0); Hemoglobin 15.2 g/dL (11.5-16.0); IMMATURE GRAN ABSOLUTE AUTO 0.02 K/mm3 (0.00-0.10); IMMATURE GRAN PERCENT AUTO 0 % (0-1); LYMPHOCYTES ABSOLUTE AUTO 2.37 K/mm3 (0.84-5.20); LYMPHOCYTES PERCENT AUTO 29 % (21-46); MONOCYTES ABSOLUTE AUTO 0.66 K/mm3 (0.16-1.47); MONOCYTES PERCENT AUTO 8 % (4-13); Mean Corpuscular HGB Conc 32.6 g/dL (31.5-36.5); Mean Corpuscular Volume 84 fL (80-100); NEUTROPHILS ABSOLUTE AUTO 4.83 K/mm3 (1.96-9.15); NEUTROPHILS PERCENT AUTO 60 % (41-73); NRBC ABSOLUTE 0.00 K/mm3 (0.00-0.02); NRBC Auto 0.0 /100 WBC (0.0-0.2); Platelet Count 260 K/mm3 (150-400); RDW Coefficient Variation 13.0 % (11.7-14.2); RDW Standard Deviation 39.3 fL (35.1-46.3)
[2025-07-05 16:09] LABS: Alanine Aminotransfer (ALT/SGP 47.0 U/L (12-78); Albumin, Blood 3.1 g/dL (3.4-5.0); Albumin/Globulin Ratio 0.6 (0.8-1.8); Anion Gap 7.0 mmol/L (3-11); Aspartate Aminotrans (AST/SGOT 30.0 U/L (12-37); Bilirubin, Total 0.5 mg/dL (0.1-1.0); Blood Urea Nitrogen 10.0 mg/dL (8-24); CO2, Blood 30.0 mmol/L (21-32); Calcium, Blood 8.8 mg/dL (8.5-10.1); Chloride, Blood 103.0 mmol/L (98-108); Creatinine, Blood 0.63 mg/dL (0.40-1.00); Globulin, Blood 4.9 g/dL (2.2-4.0); Glucose, Blood 164.0 mg/dL (70-99); Potassium, Blood 3.8 mmol/L (3.5-5.5); Sodium, Blood 136.0 mmol/L (136-145); Total Protein, Blood 8.0 g/dL (6.4-8.2)
[2025-07-05 16:29] VITALS: BP 134/78
== END 2025-07-05 16:31 | disposition home or self-care (01) ==
LOC: ER 12:08
PROVIDERS: Student in an Organized Health Care Education/Training Program
DX: A08.4 Viral intestinal infection, unspecified (principal); F15.20 Other stimulant dependence, uncomplicated; E11.9 Type 2 diabetes mellitus without complications; I10 Essential (primary) hypertension; E78.5 Hyperlipidemia, unspecified; J45.909 Unspecified asthma, uncomplicated; G47.33 Obstructive sleep apnea (adult) (pediatric); Z88.8 Allergy status to other drugs, medicaments and biological substances; Z79.899 Other long term (current) drug therapy
CPT/HCPCS: 36415; 80053; 85025; 99284

== ENCOUNTER 2025-10-22 20:04 | Emergency (ER) | payer OTHER ==
[~2025-10-22] VITALS: Ht 157.5 cm; Wt 74.8 kg
[2025-10-22 20:35] VITALS: BP 133/80
[2025-10-22 21:27] LABS: BASOPHILS ABSOLUTE AUTO 0.06 K/mm3 (0.00-0.23); BASOPHILS PERCENT AUTO 1 % (0-2); EOSINOPHILS ABSOLUTE AUTO 0.13 K/mm3 (0.00-0.68); EOSINOPHILS PERCENT AUTO 1 % (0-6); Hematocrit 44.3 % (33.0-51.0); Hemoglobin 14.2 g/dL (11.5-16.0); IMMATURE GRAN ABSOLUTE AUTO 0.02 K/mm3 (0.00-0.10); IMMATURE GRAN PERCENT AUTO 0 % (0-1); LYMPHOCYTES ABSOLUTE AUTO 2.89 K/mm3 (0.84-5.20); LYMPHOCYTES PERCENT AUTO 27 % (21-46); MONOCYTES ABSOLUTE AUTO 0.66 K/mm3 (0.16-1.47); MONOCYTES PERCENT AUTO 6 % (4-13); Mean Corpuscular HGB Conc 32.1 g/dL (31.5-36.5); Mean Corpuscular Volume 85 fL (80-100); NEUTROPHILS ABSOLUTE AUTO 6.98 K/mm3 (1.96-9.15); NEUTROPHILS PERCENT AUTO 65 % (41-73); NRBC ABSOLUTE 0.00 K/mm3 (0.00-0.02); NRBC Auto 0.0 /100 WBC (0.0-0.2); Platelet Count 248 K/mm3 (150-400); RDW Coefficient Variation 13.5 % (11.7-14.2); RDW Standard Deviation 41.7 fL (35.1-46.3)
[2025-10-22 21:36] LABS: Influenza A, PCR NEGATIVE (NEGATIVE); Influenza B, PCR NEGATIVE (NEGATIVE); Resp Syncytial Virus, PCR NEGATIVE (NEGATIVE); SARS-Cov-2 (COVID-19) PCR, MMC NEGATIVE (NEGATIVE)
[2025-10-22 21:45] LABS: Alanine Aminotransfer (ALT/SGP 35.0 U/L (12-78); Albumin, Blood 3.6 g/dL (3.4-5.0); Albumin/Globulin Ratio 0.9 (0.8-1.8); Anion Gap 7.0 mmol/L (3-11); Aspartate Aminotrans (AST/SGOT 23.0 U/L (12-37); Bilirubin, Total 0.3 mg/dL (0.1-1.0); Blood Urea Nitrogen 19.0 mg/dL (8-24); CO2, Blood 28.0 mmol/L (21-32); Calcium, Blood 9.1 mg/dL (8.5-10.1); Chloride, Blood 104.0 mmol/L (98-108); Creatinine, Blood 0.7 mg/dL (0.40-1.00); Globulin, Blood 4.0 g/dL (2.2-4.0); Glucose, Blood 199.0 mg/dL (70-99); Potassium, Blood 4.2 mmol/L (3.5-5.5); Sodium, Blood 135.0 mmol/L (136-145); Total Protein, Blood 7.6 g/dL (6.4-8.2)
[2025-10-23] MEDS ORDERED: Fluticasone 0.05% Nasal Spray ONE (00:25)
== END 2025-10-23 00:58 | disposition home or self-care (01) ==
LOC: ER 20:04
PROVIDERS: Emergency Medicine
DX: R09.82 Postnasal drip (principal); J45.909 Unspecified asthma, uncomplicated; G47.33 Obstructive sleep apnea (adult) (pediatric); E78.5 Hyperlipidemia, unspecified; I10 Essential (primary) hypertension; E11.9 Type 2 diabetes mellitus without complications; Z79.899 Other long term (current) drug therapy; Z88.8 Allergy status to other drugs, medicaments and biological substances
CPT/HCPCS: 71046; 80053; 84484; 85025; 87637; 93005; 93010; 99283-25; A9270